=== PATIENT | female | born 1945 | race Caucasian/White ===

== ENCOUNTER 2025-04-13 15:02 | Observation (INO) | payer MEDICARE ==
[~2025-04-13] VITALS: Ht 149.8 cm; Wt 81.6 kg
[2025-04-13] VITALS (10 sets, daily range): BP systolic 158–225; BP diastolic 65–112
[2025-04-13] MEDS ORDERED: IOHEXOL 350 MG/ML 100 ML VIAL IV ONE ×2 (15:30→15:46)
[2025-04-13] MEDS ORDERED: SODIUM CHLORIDE 0.9% 100 ML BAG IV ONE (15:30)
[2025-04-13] MEDS ORDERED: SODIUM CHLORIDE 0.9% 100 ML IV ONE (15:46)
[2025-04-13 15:48] LABS: BASO # 0.0 10*3/uL (0.0-0.1); BASO % 0.5 % (0.0-1.0); EOS # 0.3 10*3/uL (0.0-0.4); EOS % 3.9 % (1.0-4.0); MEAN CELL VOLUME 87.3 fl (81.0-99.0); MEAN CORPUSCULAR HGB 29.8 pg (27.0-31.0); MEAN PLATELET VOLUME 10.9 fl (9.6-12.3); MONO # 0.6 10*3/uL (0.1-1.0); MONO % 6.7 % (3.0-9.0); NEUT # 6.1 10*3/uL (2.3-7.9); NEUT % 70.8 % (47.0-73.0); NUCLEATED RED BLOOD CELL 0.0 % (0.0-0.0); NUCLEATED RED BLOOD CELL 0.0 10*3/uL (0.0-0.0); PLATELET COUNT AUTOMATED 262 10*3/uL (130-400); RED CELL DISTRI WIDTH 13.5 % (0-14.5)
[2025-04-13 16:00] LABS: ACT PARTIAL THROMBO TIME 25.9 SECONDS (20.0-32.1)
[2025-04-13 16:13] LABS: BUN 8 mg/dl (9-23); CPK 48 U/L (34-171)
[2025-04-13] MEDS ORDERED: ASPIRIN 325 MG ENTERIC COATED PO ONE (16:25)
[2025-04-13] MEDS ORDERED: hydrALAZINE hydrochloride 20 MG/ML VIAL IV ONE (16:40)
[2025-04-13] MEDS ORDERED: ATORVASTATIN CALCIUM 80 MG TAB PO ONE (18:45)
[2025-04-13] MEDS ORDERED: Clopidogrel Hydrogen Sulfate 75 MG TAB PO ONE (18:45)
[2025-04-14] VITALS (14 sets, daily range): BP systolic 149–235; BP diastolic 59–92
[2025-04-14] MEDS ORDERED: hydrALAZINE hydrochloride 20 MG/ML VIAL IV ONE ×2 (04:50→12:00)
[2025-04-14] MEDS ORDERED: ACETAMINOPHEN 325 MG TAB PO PRN (12:50)
[2025-04-14] MEDS ORDERED: Acetaminophen/Hydrocodone 5 MG/325 MG TABLET PO PRN (12:50)
[2025-04-14] MEDS ORDERED: BISACODYL 5 MG TAB PO PRN (12:50)
[2025-04-14] MEDS ORDERED: Ondansetron Hydrochloride 4 MG/2 ML VIAL IV PRN (12:50)
[2025-04-14] MEDS ORDERED: ACETAMINOPHEN 650 MG SUPP R PRN (12:50)
[2025-04-14] MEDS ORDERED: BISACODYL 10 MG SUPP R PRN (12:50)
[2025-04-14] MEDS ORDERED: ASPIRIN ENTERIC COATED 81 MG TAB PO SCH (13:00)
[2025-04-14] MEDS ORDERED: POTASSIUM CHLORIDE 20 MEQ TAB PO ONE ×3 (13:00→15:10)
[2025-04-14 13:24] LABS: BASO # 0.1 10*3/uL (0.0-0.1); BASO % 0.4 % (0.0-1.0); EOS # 0.1 10*3/uL (0.0-0.4); EOS % 0.8 % (1.0-4.0); MEAN CELL VOLUME 86.6 fl (81.0-99.0); MEAN CORPUSCULAR HGB 29.5 pg (27.0-31.0); MEAN PLATELET VOLUME 10.9 fl (9.6-12.3); MONO # 0.7 10*3/uL (0.1-1.0); MONO % 5.6 % (3.0-9.0); NEUT # 9.7 10*3/uL (2.3-7.9); NEUT % 78.2 % (47.0-73.0); NUCLEATED RED BLOOD CELL 0.0 % (0.0-0.0); NUCLEATED RED BLOOD CELL 0.0 10*3/uL (0.0-0.0); PLATELET COUNT AUTOMATED 305 10*3/uL (130-400); RED CELL DISTRI WIDTH 13.7 % (0-14.5)
[2025-04-14 13:52] LABS: BUN 9 mg/dl (9-23); SGPT/ALT 11 U/L (5-49)
[2025-04-14] MEDS ORDERED: Labetalol Hydrochloride 20 MG/4 ML SYR IV ONE (15:35)
[2025-04-15] VITALS (9 sets, daily range): BP systolic 135–179; BP diastolic 58–78
[2025-04-15 06:06] LABS: BASO # 0.0 10*3/uL (0.0-0.1); BASO % 0.3 % (0.0-1.0); EOS # 0.3 10*3/uL (0.0-0.4); EOS % 2.2 % (1.0-4.0); MEAN CELL VOLUME 85.9 fl (81.0-99.0); MEAN CORPUSCULAR HGB 28.7 pg (27.0-31.0); MEAN PLATELET VOLUME 11.1 fl (9.6-12.3); MONO # 0.9 10*3/uL (0.1-1.0); MONO % 7.3 % (3.0-9.0); NEUT # 8.7 10*3/uL (2.3-7.9); NEUT % 68.8 % (47.0-73.0); NUCLEATED RED BLOOD CELL 0.0 % (0.0-0.0); NUCLEATED RED BLOOD CELL 0.0 10*3/uL (0.0-0.0); PLATELET COUNT AUTOMATED 287 10*3/uL (130-400); RED CELL DISTRI WIDTH 14.2 % (0-14.5)
[2025-04-15 06:22] LABS: ACT PARTIAL THROMBO TIME 25.1 SECONDS (20.0-32.1)
[2025-04-15 06:42] LABS: BUN 12 mg/dl (9-23); FREE T4 1.06 ng/dl (0.89-1.76); LDL CHOLESTEROL 56 mg/dL (9-159); SGPT/ALT 10 U/L (5-49)
[2025-04-15] MEDS ORDERED: ATORVASTATIN CALCIUM 40 MG TABLET PO SCH (10:00)
[2025-04-15] MEDS ORDERED: ASPIRIN ADULT L81 M2 PO (15:30)
[2025-04-15] MEDS ORDERED: ATORVASTATIN CA40 M1 PO (15:30)
[2025-04-15] MEDS ORDERED: Labetalol Hydrochloride 20 MG/4 ML SYR IV ONE (16:20)
== END 2025-04-15 17:41 | disposition short-term general hospital (02) ==
LOC: ED 15:02 → EDHOLD 04-14 11:58
PROVIDERS: Emergency Medicine; Student in an Organized Health Care Education/Training Program; ADMIT Internal Medicine; ATTEND Internal Medicine
DX: I65.21 Occlusion and stenosis of right carotid artery (principal); I63.9 Cerebral infarction, unspecified; E87.6 Hypokalemia; I16.1 Hypertensive emergency; E20.9 Hypoparathyroidism, unspecified; Z79.899 Other long term (current) drug therapy; Z98.890 Other specified postprocedural states